=== PATIENT | male | born 1980 | race Caucasian/White ===

== ENCOUNTER 2017-01-28 14:02 | Emergency (ER) | payer OTHER, BC ==
[2017-01-28 14:12] VITALS: BP 153/88; PULSE 100; TEMP 98; BMI 30.9
[2017-01-28] MEDS ORDERED: IBUPROFEN 600 MG TABLET (FP) PO ONE ×2 (14:42)
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
== END 2017-01-28 16:22 | disposition home or self-care (01) ==
LOC: JERFT 14:02
PROC: 2W39X1Z Immobilization of Left Upper Extremity using Splint (ICD-10-PCS; principal; 2017-01-28)
DX: S62.367A Nondisplaced fracture of neck of fifth metacarpal bone, left hand, initial encounter for closed fracture (principal); Y35.811A Legal intervention involving manhandling, law enforcement official injured, initial encounter; Y93.89 Activity, other specified; Y92.89 Other specified places as the place of occurrence of the external cause; Y99.0 Civilian activity done for income or pay
CPT/HCPCS: 73130-TC-LT; 99281-25

== ENCOUNTER 2018-04-05 13:52 | Emergency (ER) | payer OTHER ==
[2018-04-05 13:59] VITALS: BP 145/95; PULSE 80; TEMP 98.5; BMI 30.9
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
== END 2018-04-05 14:51 | disposition home or self-care (01) ==
LOC: JER 13:52 → JERFT 13:52
DX: Z77.21 Contact with and (suspected) exposure to potentially hazardous body fluids (principal); Y35.891A Legal intervention involving other specified means, law enforcement official injured, initial encounter; Y93.89 Activity, other specified; Y92.9 Unspecified place or not applicable; E78.00 Pure hypercholesterolemia, unspecified; Z87.891 Personal history of nicotine dependence
CPT/HCPCS: 99281-25

== ENCOUNTER 2018-05-20 15:31 | Emergency (ER) | payer OTHER ==
[2018-05-20 15:45] VITALS: BP 138/56; PULSE 140; TEMP 98.7; BMI 30.9
[2018-05-20] MEDS ORDERED: IBUPROFEN 600 MG TABLET (FP) PO ONE ×2 (15:55→15:58)
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
== END 2018-05-20 16:56 | disposition home or self-care (01) ==
LOC: JERFT 15:31 → JER 15:31 → JERFT 16:56
PROC: 2W3CX1Z Immobilization of Right Lower Arm using Splint (ICD-10-PCS; principal; 2018-05-20)
DX: S62.396A Other fracture of fifth metacarpal bone, right hand, initial encounter for closed fracture (principal); Y35.811A Legal intervention involving manhandling, law enforcement official injured, initial encounter; Y93.89 Activity, other specified; Y92.89 Other specified places as the place of occurrence of the external cause; Y99.8 Other external cause status
CPT/HCPCS: 73110-TC-LR-FY; 73130-TC-LR-FY; 99282-25

== ENCOUNTER 2021-06-05 09:27 | Emergency (ER) | payer OTHER ==
[2021-06-05] MEDS ORDERED: IBUPROFEN 400 MG TABLET (FP) PO ONE ×2 (09:45→09:51)
[2021-06-05 09:59] VITALS: BP 147/100; PULSE 109; TEMP 98.2; BMI 30.9
== END 2021-06-05 10:56 | disposition home or self-care (01) ==
LOC: FER 09:27
DX: M54.5 Low back pain (principal)
CPT/HCPCS: 72100-TC-FY; 99283-25